=== PATIENT | female | born 1990 | race Caucasian/White ===

== ENCOUNTER 2021-05-06 07:29 | Emergency (ER) | payer MEDICARE ==
[~2021-05-06] VITALS: Ht 172.7 cm; Wt 82.6 kg
== END 2021-05-06 10:59 | disposition home or self-care (01) ==
LOC: ER 07:52
DX: M25.562 Pain in left knee (principal); G89.29 Other chronic pain; F17.210 Nicotine dependence, cigarettes, uncomplicated
CPT/HCPCS: 99283